=== PATIENT | female | born 1990 | race Caucasian/White ===

== ENCOUNTER 2017-01-04 11:51 | Outpatient (CLI) | payer OTHER ==
--- NOTE | 2017-01-04 21:01 | Mammography Report ---
DIGITAL DIAGNOSTIC BILATERAL MAMMOGRAM: 01/04/2017 This is a baseline exam. There are no comparisons. INDICATION: Bilateral breast lumps. History of autologous fat injections. TECHNIQUE: Bilateral CC and MLO breast views. FINDINGS: The breast parenchyma is heterogeneously dense, which may limit the sensitivity of mammography. There are multiple scattered bilateral eggshell calcifications with fat central density, consistent with oil cysts. No dominant mass, architectural distortion, or concerning cluster of microcalcifications is seen in other regards. IMPRESSION: 1. BIRADS CATEGORY: 2, BENIGN FINDINGS. 2. RECOMMEND SCREENING ANNUAL MAMMOGRAPHY BEGINNING AT AGE 40 IN THE ABSENCE OF INCREASED RISK FACTORS. STANDARD QUALIFYING STATEMENTS 1. This examination was reviewed with the aid of Computed-Aided Detection (CAD) . 2. A negative or benign imaging report should not delay biopsy if clinically suspicious findings are present. Consider surgical consultation if warranted. More than 5% of cancers are not identified by imaging. 3. Dense breasts may obscure an underlying neoplasm. JOB #: [id number] EXT JOB #: [id number] MARK
== END 2017-01-04 11:52 | disposition home or self-care (01) ==
LOC: DI 11:51
PROVIDERS: ATTEND Nurse Practitioner
DX: N63.20 Unspecified lump in the left breast, unspecified quadrant (principal); N63.10 Unspecified lump in the right breast, unspecified quadrant
CPT/HCPCS: 77066